=== PATIENT | female | born 1970 | race Caucasian/White ===

== ENCOUNTER → 2016-11-21 | Outpatient (CLI) | payer BC ==
--- NOTE | 2016-11-22 12:32 | MAM ---
EXAM DESCRIPTION: 3D Screening BILATERAL CLINICAL HISTORY: 46 yearsFemaleSCREENING no complaints. Remote family history of breast cancer. Premenopausal. Taking HRT more than five years ago.. COMPARISON: 2-D digital screening bilateral study 06/17/2014.. No prior reports available. TECHNIQUE: Bilateral CC and MLO projection full-field images, 3-D tomosynthesis digital mammographic technique. Also bilateral synthesized CC/ MLO full-field images. CAD not utilized. FINDINGS: The breast parenchymal density pattern is: Scattered areas of fibroglandular density. No skin thickening or nipple retraction left axillary lymph node. Focal asymmetry in the upper-outer quadrant of the middle third of the right breast at the 930 clock position, approximately 10 cm from the nipple. Same density as surrounding fibroglandular tissues. No definite microcalcifications. Not well seen on the prior study from 2014. No focal, stellate mass or density, focal asymmetry , and no suspicious microcalcifications left breast. IMPRESSION: BI-RADS CATEGORY: 0 - INCOMPLETE- Need additional imaging evaluation. FOLLOW-UP: Recall for additional imaging: Full field LM digital mammography of the right breast. Targeted right breast ultrasound of the region of interest. Written communication concerning the IMPRESSION and Follow-up, will be mailed to the patient and referring health care provider. Electronically signed by: Clinton Sidhu MD 11/22/2016 12:31 PM CDT
== END | disposition home or self-care (01) ==
LOC: MAMMO 09:26
PROVIDERS: ATTEND Family Medicine
DX: Z12.31 Encounter for screening mammogram for malignant neoplasm of breast (principal)
CPT/HCPCS: 77063; G0202

== ENCOUNTER → 2016-11-30 | Outpatient (CLI) | payer BC ==
--- NOTE | 2016-11-30 09:49 | US ---
EXAM DESCRIPTION: Breast,Right: Ultrasound. CLINICAL HISTORY: 46 yearsFemaleABNORMAL MAMMO COMPARISON: Digital 3-D tomosynthesis right breast on this visit. Bilateral digital screening 3-D breast tomosynthesis 11/21/2016. TECHNIQUE: Transcutaneous scanning of the upper-outer quadrant right breast utilizing two-dimensional and Doppler modes. Scanning performed by the botany laboratory assistant and Dr. Sidhu. FINDINGS: Oval-shaped well-defined hypoechoic lymph node with well-circumscribed margins and central echogenicity. Not significantly vascular. 7 x 4 x 4 mm dimensions. No posterior acoustic features. Parallel orientation. Abutting a 5 mm anechoic cyst with well-circumscribed loya, posterior acoustic enhancement. Nonvascular. IMPRESSION: 1. Bi-Rads Category 2: Benign. 2. Please refer to 3-D tomosynthesis right breast diagnostic examination report on this visit. The findings and the follow-up plan were reviewed in person with the patient after the examination. Written communication regarding the IMPRESSION and follow-up will be mailed to the patient and referring health care provider. Electronically signed by: Clinton Sidhu MD 11/30/2016 9:48 AM CDT
--- NOTE | 2016-11-30 09:50 | MAM ---
EXAM DESCRIPTION: 3D Diagnostic, Right CLINICAL HISTORY: 46 yearsFemaleABNORMAL MAMMO focal asymmetry in the lateral right breast on prior screening mammogram. COMPARISON: 3-D breast tomosynthesis bilateral screening 11/21/2016. Report from prior examination also reviewed. TECHNIQUE: Right LM projection 3-D tomosynthesis digital mammographic technique. Also right synthesized LM full-field image. CAD not utilized. FINDINGS: The breast parenchymal density pattern is: Scattered areas of fibroglandular density. No skin thickening or nipple retraction No focal, stellate mass or density, focal asymmetry , and no suspicious microcalcifications 930-1000 clock position of the middle third of the upper-outer quadrant of the right breast. ULTRASOUND: Oval-shaped well-defined hypoechoic lymph node with well-circumscribed margins and central echogenicity. Not significantly vascular. 7 x 4 x 4 mm dimensions. No posterior acoustic features. Parallel orientation. Abutting a 5 mm anechoic cyst with well-circumscribed loya, posterior acoustic enhancement. Nonvascular. IMPRESSION: BI-RADS CATEGORY: 2 - BENIGN FINDINGS. FOLLOW UP: Return to routine digital bilateral mammographic screening, one year interval from November 2016. Written communication explaining the IMPRESSION and follow-up, will be mailed to the patient and referring health care provider. According to the [employer], yearly mammograms are recommended starting at age 40 and continuing as long as a woman is in good health. Any breast change noted on a breast self-exam should be reported promptly to the patient's healthcare provider. Breast MRI is recommended for women with an approximately 20-25% or greater lifetime risk of breast cancer, including women with a strong family history of breast or ovarian cancer and women who have been treated for Hodgkin's disease. A negative mammographic report should not delay tissue diagnosis in patients with significant clinical history or physical findings. Extremely dense breast tissue limits the sensitivity of digital mammography. Electronically signed by: Clinton Sidhu MD 11/30/2016 9:49 AM CDT
== END | disposition home or self-care (01) ==
LOC: MAMMO 08:33
PROVIDERS: ATTEND Family Medicine
DX: R92.8 Other abnormal and inconclusive findings on diagnostic imaging of breast (principal)
CPT/HCPCS: 76641; G0279

== ENCOUNTER → 2017-01-30 | Outpatient (CLI) | payer BC | END | disposition home or self-care (01) | LOC: GMA 14:40 | PROVIDERS: ATTEND Nurse Practitioner Family | DX: R07.2 Precordial pain (principal); R30.0 Dysuria ==

== ENCOUNTER → 2019-08-28 | Outpatient (CLI) | payer BC ==
--- NOTE | 2019-08-29 10:42 | MAM ---
EXAM DESCRIPTION: 3D Screening BILATERAL : Digital Mammography. CLINICAL HISTORY: 48 years Female SCREENING . No complaints. Remote family history of breast cancer. Menarche age 11. Childbirth age 23. Premenopausal. No HRT. Lifetime risk of developing breast cancer (Tyrer-Cuzick model)(%): 9.9. COMPARISON: Bilateral screening digital breast tomosynthesis November 2016. Right breast diagnostic digital breast tomosynthesis and targeted ultrasound November 2016. TECHNIQUE: Bilateral CC and MLO projection full-field images, digital tomosynthesis mammographic technique. Bilateral digital 2-D full-field MLO images. CAD available for 2-D images. FINDINGS: The breast parenchymal density pattern is: Scattered areas of fibroglandular density. No skin thickening or nipple retraction. No new focal, stellate mass or density, focal asymmetry , and no suspicious microcalcifications . Stable mammograms compared to prior study. IMPRESSION: No suspicious or significant imaging findings. BI-RADS CATEGORY: 1 - NEGATIVE RECOMMENDATIONS: FOLLOW UP: Routine digital bilateral screening, one year interval from August 2019. Written communication explaining the findings and follow-up, will be mailed to the patient and referring health care provider. According to the [employer], yearly mammograms are recommended starting at age 40 and continuing as long as a woman is in good health. Any breast change noted on a breast self-exam should be reported promptly to the patient's healthcare provider. Breast MRI is recommended for women with an approximately 20-25% or greater lifetime risk of breast cancer, including women with a strong family history of breast or ovarian cancer and women who have been treated for Hodgkin's disease. A negative mammographic report should not delay tissue diagnosis in patients with significant clinical history or physical findings. Extremely dense breast tissue limits the sensitivity of digital mammography. Electronically signed by: Clinton Sidhu MD 08/29/2019 10:40 AM CDT
== END ==
LOC: MAMMO 10:44
PROVIDERS: ATTEND Family Medicine
DX: Z12.31 Encounter for screening mammogram for malignant neoplasm of breast (principal)